=== PATIENT | female | born 1975 | race Caucasian/White ===

== ENCOUNTER 2019-09-28 00:57 | Emergency (ER) | payer MEDICAID ==
[~2019-09-28] VITALS: Ht 154.9 cm; Wt 69.9 kg
[~2019-09-28 00:57] MED LIST: METF1000 PO
[2019-09-28 01:00] VITALS: BP 202/99
--- NOTE | 2019-09-28 01:00 | NUR ---
44 Y/O F, PRESENTS TO ED WITH COMPLAINTS OF LEFT SIDED NUMBNESS. REPORTS NUMBNESS STARTED YESTERDAY IN THE EVENING. HX OF DM, REPORTS NONCOMPLIANCE OF MEDS FOR OVER 3 MONTHS. FACIAL SYMMETRY, STEADY GAIT, BILATERAL HAND [employer]GEANT ARE STRONG. REPORTS NUMBNESS IN FACE AND LEFT FOREARM, DENIES PAIN. 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 PT IS KHMER SPEAKING AND STATES SHE WALKED TO ED FROM HOME. LELAND UPx1, WILL CONTINUE TO MONITOR. Addendum: 09/28/19 at 0147 by [place] BLOOD [id number]
--- NOTE | 2019-09-28 01:06 | NUR ---
PT AMBULATED TO BED 11 WITH STEADY GAIT.
[2019-09-28] MEDS ORDERED: LORazepam 2 MG/ML VIAL IM ONE (01:25)
--- NOTE | 2019-09-28 01:58 | NUR ---
PT's AT BEDSIDE, ERMD AT BEDSIDE TO UPDATE ON PATIENTS CONDITION.
[2019-09-28 03:00] VITALS: BP 148/83
--- NOTE | 2019-09-28 03:00 | NUR ---
Patient discharged with v/s stable. Written and verbal after care instructions given and explained. Patient alert, oriented and verbalized understanding of instructions. Ambulatory with steady gait. All questions addressed prior to discharge. ID band removed. Patient advised to follow up with PMD. Rx of XANAX WAS given. Patient educated on indication of medication including possible reaction and side effects. Opportunity to ask questions provided and answered. PT STATED THAT HER ANXIETY HAD DECREASED 2/10. PT HAD NO PAIN 0/10 PRIOR TO D/C
== END 2019-09-28 03:00 | disposition home or self-care (01) ==
LOC: MED 00:57
DX: F15.10 Other stimulant abuse, uncomplicated (principal); E11.9 Type 2 diabetes mellitus without complications; Z79.84 Long term (current) use of oral hypoglycemic drugs
CPT/HCPCS: 82948; 96372; 99283; J2060

== ENCOUNTER 2020-02-22 14:16 | Emergency (ER) | payer MEDICAID, SELFPAY ==
[~2020-02-22] VITALS: Ht 154.9 cm; Wt 59.0 kg
[2020-02-22 14:16] VITALS: BP 162/101
[2020-02-22 16:35] VITALS: BP 156/72
== END 2020-02-22 16:36 | disposition home or self-care (01) ==
LOC: MED 14:16 → EEVIPCON 14:16 → MED 16:36
DX: Z03.818 Encounter for observation for suspected exposure to other biological agents ruled out (principal); J10.1 Influenza due to other identified influenza virus with other respiratory manifestations; B34.9 Viral infection, unspecified; E11.9 Type 2 diabetes mellitus without complications; Z79.84 Long term (current) use of oral hypoglycemic drugs
CPT/HCPCS: 36415; 87804; 99283